=== PATIENT | female | born 1975 | race Two or more races ===

== ENCOUNTER → 2023-10-12 | Emergency (ER) | payer OTHER ==
[~2023-10-12] VITALS: Ht 170.2 cm; Wt 68.0 kg
[~2023-10-12] MED LIST: GILENYA; NEXIUM2.5 MG
== END | disposition left against medical advice (07) ==
LOC: ER 15:18
DX: Z53.21 Procedure and treatment not carried out due to patient leaving prior to being seen by health care provider (principal)